=== PATIENT | male | born 2000 | race African-American/Black ===

== ENCOUNTER 2022-09-14 10:58 | Emergency (ER) | payer BC, SELFPAY ==
[2022-09-14 10:56] VITALS: BP 81/64; PULSE 54; RESP 19; TEMP 36.4; O2SAT 100
--- NOTE | 2022-09-14 11:01 | ECG_ITS ---
Measurements Intervals [place] Rate: 49 P: 49 MD: 156 QRS: 30 QRSD: 110 T: 56 QT: 405 QTc: 367 Interpretive Statements SINUS BRADYCARDIA ST ELEVATION IN DIFFUSE LEADS- PROBABLY EARLY REPOLARIZATION BASELINE ARTIFACT- I, II, AVR, AVL ABNORMAL ECG NO PREVIOUS ECG AVAILABLE FOR COMPARISON Electronically Signed On 09-14-2022 12:10:03 CDT by Ajith Pal D.O.
[2022-09-14 11:06] VITALS: BP 95/67; BP 97/61; PULSE 54; PULSE 66
[2022-09-14 11:08] VITALS: BP 101/50; PULSE 83
[2022-09-14] MEDS: SODIUM CHLORIDE 0.9% IV 1,000 ML 999 ML IV CONT (11:43)
[2022-09-14 12:14] LABS: Basophils Percent Auto 0.6 % (0.2-1.2); Eosinophils Percent Auto 0.5 % (0-4.4); Hematocrit 42.5 % (42.0-52.0); Hemoglobin 13.7 g/dL (14.0-18.0); Immature Granulocyte Absolute 0.03 K/mm3 (0.00-0.031); Immature Granulocyte Percent A 0.5 % (0-0.5); Immature Platelet Fraction Pct 3.7 % (0.9-11.2); Lymphocytes Absolute Auto 0.81 K/mm3 (0.9-3.2); Lymphocytes Percent Auto 12.7 % (18.3-44.2); Mean Corpuscular HGB Conc 32.2 g/dl (32-36); Mean Corpuscular Hemoglobin 27.2 pg (26-34); Mean Corpuscular Volume 84.3 fl (80-100); Mean Platelet Volume 9.7 fl (7.4-10.4); Monocytes Absolute Auto 0.4 K/mm3 (0.1-0.6); Monocytes Percent Auto 6.6 % (2.6-8.5); Neutrophils Percent Auto 79.1 % (45.5-73.1); Platelet Count Result 185 k/mm3 (150-375); Red Blood Count 5.04 M/mm3 (4.6-6.20); Red Cell Distribution Width 13.2 % (11.5-14.5); White Blood Count 6.4 K/mm3 (4.5-10.0)
[2022-09-14 12:17] LABS: Alanine Aminotransferase 15 U/L (6-50); Albumin Level 4.5 g/dL (3.5-5.1); Alkaline Phosphatase 65 U/L (38-126); Anion Gap 13 mmol/L (8-16); Aspartate Amino Transferase 23 U/L (17-59); Bilirubin,Total 0.4 mg/dL (0.2-1.3); Blood Urea Nitrogen 15 mg/dL (9-20); Calcium 9.2 mg/dL (8.4-10.2); Carbon Dioxide 22 mmol/L (22-30); Chloride 105 mmol/L (98-107); Estimated CRCL calculation 85 ml/min; Estimated Glomerular Filt Rate > 60; Glucose 103 mg/dL (65-110); Potassium 3.8 mmol/L (3.4-5.0); Sodium 140 mmol/L (137-145)
--- NOTE | 2022-09-14 12:27 | ED.GENADULT ---
HPI - General Adult General Chief complaint: Unspecified Stated complaint: near syncopy Time Seen by Provider: 09/14/22 11:06 Source: patient, EMS and RN notes reviewed Mode of arrival: EMS Limitations: no limitations History of Present Illness HPI narrative: This is a 21 year old male who presents for evaluation of a syncopal episode. Patient states that he was getting blood drawn when he passed out. Patient has history of syncopal episodes with blood draw. His family also reports he passed out in ambulance and they found his blood pressure to be low and heart rate to be low. Patient denies having chest pain, shortness of breath or palpitations. Patient developed abdominal discomfort, nausea and diarrhea on arrival to ER. He denies abdominal pain or nausea at this time. He states he was not having any GI issues before his blood draw. Patient states he feels much better now. EMS gave patient NS bolus. HE has been able to ambulate in ER. Related Data Home Medications Medication Instructions Recorded Confirmed No Home Medications 09/14/22 09/14/22 Allergies Allergy/AdvReac Type Severity Reaction Status Date / Time No Known Drug Allergies AdvReac Unknown Verified 09/14/22 07:50 Review of Systems Constitutional: Constitutional: Denies weakness Cardiovascular: Cardiovascular: Denies syncope, Denies rapid heart rate, Denies irregular heart rhythm, Denies leg edema and Denies dyspnea Respiratory: Respiratory: Denies chest congestion, Denies hemoptysis, Denies excessive phlegm production and Denies dyspnea Gastrointestinal: Gastrointestinal: Reports abdominal pain, Denies hematochezia, Reports diarrhea, Reports nausea and Denies vomiting Genitourinary: Genitourinary: Denies hematuria, Denies dysuria, Denies penile discharge and Denies testicular pain Musculoskeletal: Musculoskeletal: Denies joint swelling, Denies loss of height and Denies muscle weakness Neurologic: Reports syncope, Denies focal weakness and Denies weakness PMFSH Past Medical History Medical History Syncope Family History Family History (Updated 09/14/22 @ 12:31 by Lisa Santiago MD) Other Anemia Social History Social History Smoking status: Never smoker Exam Narrative: GENERAL: Well-appearing, well-nourished, and in no acute distress. HEAD: Normocephalic, atraumatic EYES: PERRLA and EOMI, conjunctiva clear without discharge EARS: TM's clear bilaterally without erythema or dullness NOSE: Nares clear, no rhinorrhea or epistaxis THROAT:Mucous membranes moist, Oropharynx normal without erythema, exudate, peritonsillar swelling or fluctuance NECK: Supple, without lymphadenopathy or mass RESPIRATORY: No respiratory distress, Airway patent, Respirations non-labored, Clear to auscultation without rales, rhonchi or wheeze HEART: Regular rate and rhythm. No murmur heard. Normal peripheral pulses. ABDOMEN: Soft, nontender, nondistended, normal active bowel sounds. No masses. No rebound or guarding, No organomegaly. EXTREMITIES: No edema, normal strength with full range of motion. SKIN: Warm, dry, normal color without rash NEURO: Alert and oriented x3. CN 2-12 grossly intact. No focal deficits. PSYCH: Normal mood and affect. Course Reevaluation(s) Reevaluation #1: I discussed with patient and mother it appears he has vasovagal syncopal episode. He is stable for discharge. He denies dizziness. Date: 09/14/22 Time: 12:33 Vital Signs Vital signs: Vital Signs Temperature 97.5 F L 09/14/22 10:56 Pulse Rate 54 L 09/14/22 10:56 Respiratory Rate 19 09/14/22 10:56 Blood Pressure 81/64 L 09/14/22 10:56 Pulse Oximetry 100 09/14/22 10:56 Oxygen Delivery Room Air 09/14/22 10:56 Temperature 97.5 F L 09/14/22 10:56 Pulse Rate 53 L 09/14/22 12:30 Respiratory Rate 18 09/14/22 12:30 Blood Pre
[2022-09-14 12:30] VITALS: BP 98/59; PULSE 53; RESP 18; O2SAT 100
== END 2022-09-14 12:44 | disposition home or self-care (01) ==
PROVIDERS: Emergency Provider General Practice; PCP Nurse Practitioner Family
DX: R55 Syncope and collapse (principal); R00.1 Bradycardia, unspecified
CPT/HCPCS: 36415; 80053; 85025; 85055; 93005; 96360; 99284; J7030